=== PATIENT | male | born 1975 | race Hispanic/Latino ===

== ENCOUNTER → 2018-05-11 | Outpatient (CLI) | payer BC ==
--- NOTE | 2018-05-11 10:13 | Diagnostic Imaging Report ---
Exam: Parotid ultrasound dated 05/11/2018 at 9:10 AM History: Questionable mass. 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 That study is not currently available to review. Comparison: None available Findings: Real-time evaluation of both parotid glands shows a area of inhomogeneity involving the right parotid gland without definite evidence of a focal encapsulated mass. Left parotid gland is unremarkable. Impression: 1. 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 2. No biopsy was performed at this time pending review of the prior imaging study. 3. Following review of the prior outside study recommendation concerning biopsy, short-term follow-up versus MRI will be made. Signed by: Dr. Norbert Kauffman DO on 05/11/2018 10:09 AM
== END ==
LOC: US 08:20
PROVIDERS: ATTEND Otolaryngology
DX: K11.9 Disease of salivary gland, unspecified (principal)
CPT/HCPCS: 76536